=== PATIENT | male | born 1960 ===

== ENCOUNTER 2020-01-11 08:27 | Emergency (ER) | payer SELFPAY ==
[~2020-01-11] VITALS: Ht 170.2 cm; Wt 111.1 kg
[2020-01-11] MEDS ORDERED: IBUP800 PO (09:11)
[2020-01-11] MEDS ORDERED: Robaxin-750750 MG PO (09:11)
[2020-01-12] MEDS ORDERED: PRED20 PO (07:59)
[2020-01-12] MEDS ORDERED: HYDR1TAB94 PO (07:59)
== END 2020-01-11 09:21 | disposition home or self-care (01) ==
LOC: ER 08:27
DX: M54.31 Sciatica, right side (principal)
CPT/HCPCS: 99282